=== PATIENT | female | born 1945 | race Caucasian/White ===

== ENCOUNTER 2017-08-21 16:51 | Emergency (ER) | payer OTHER, MEDICARE ==
[2017-08-21] MEDS ORDERED: Ondansetron 4 MG Tab.DIS PO ONE (18:07)
--- NOTE | 2017-08-21 18:13 | EDM.PDOC ---
ED HPI GENERAL MEDICAL PROBLEM - General Chief Complaint: Abdominal Pain Stated Complaint: UPPER ABDOMINAL PAIN/NAUSEA Time Seen by Provider: 08/21/17 18:00 Source of Information: Reports: Patient, Family, Old Records History Limitations: Reports: No Limitations - History of Present Illness INITIAL COMMENTS - FREE TEXT/NARRATIVE: 72 yo female from [facility] presents with upper abdominal discomfort associated with nausea and some distention. Last BM about midday today was normal. Had a SBO about 2 yrs ago that resolved with conservation measures. Has a kidney transplant with urostomy. No recent fevers. Sx's first noted about 11 am today. Lives in [place], [place]. Mentions only much later in ER course that she also has a pHx of gastric bypass. Onset: Today Onset Date: 08/21/17 Onset Time: 11:00 Duration: Hour(s):, Waxing/Waning Location: Reports: Abdomen Quality: Reports: Other (cramping, pressure) Severity: Moderate Improves with: Reports: None Worsens with: Reports: None Context: Reports: Other (Hx of SBO) Associated Symptoms: Reports: Nausea/Vomiting (no vomiting) Treatments [employer] [place] [employer]: Reports: Other (see below) (none) Upper Abdomen Pain Score (Numeric/FACES): 5 - Related Data Allergies Allergy/AdvReac Type Severity Reaction Status Date / Time ciprofloxacin [From Cipro] Allergy Rash Verified 08/21/17 17:30 ciprofloxacin HCl Allergy Rash Verified 08/21/17 17:30 [From Cipro] morphine Allergy Disorientat Verified 08/21/17 19:08 ion Sulfa (Sulfonamide Allergy Hallucinati Verified 08/21/17 17:30 Antibiotics) ons vancomycin Allergy Rash Verified 08/21/17 17:30 zolpidem Allergy Blurred Verified 08/21/17 17:30 Vision gabapentin AdvReac Lethargy Verified 08/21/17 17:30 Home Meds: Home Meds Aspirin 81 mg PO BEDTIME 09/04/15 [History] Calcium Carbonate/Vitamin D3 [Calcium 500 + Vit D 400] 1 tab PO BID 09/04/15 [ History] DULoxetine HCl [Duloxetine HCl] 90 mg PO BEDTIME 09/04/15 [History] Levothyroxine [Synthroid] 50 mcg PO DAILY 09/04/15 [History] Metoprolol Tartrate 25 mg PO BID 09/04/15 [History] Mirtazapine 7.5 mg PO BEDTIME 09/04/15 [History] Mycophenolate Sodium [Mycophenolic Acid] 540 mg PO BID 09/04/15 [History] Pramipexole [Mirapex] 0.25 mg PO BID 09/04/15 [History] Pravastatin Sodium 20 mg PO DAILY 09/04/15 [History] buPROPion [Wellbutrin SR] 100 mg PO DAILY 09/04/15 [History] cycloSPORINE, Modified [Neoral] 100 mg PO BID 09/04/15 [History] hydrALAZINE [Apresoline] 25 mg PO BID 09/04/15 [History] Cyanocobalamin (Vitamin B12) [Cyanocobalamin] 1,000 mcg .XX ASDIRECTED 08/21/17 [History] Thiamine HCl [Vitamin B-1] 100 mg PO DAILY 08/21/17 [History] diphenhydrAMINE [Benadryl] 50 mg PO BEDTIME PRN 08/21/17 [History] Past Medical History HEENT History: Reports: Hard of Hearing, Impaired 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 Cardiovascular History: Reports: Hypertension Genitourinary History: Reports: Urostomy, UTI, Recurrent SKIVER UPPERS OR LININGS History: Reports: , Spontaneous Musculoskeletal History: Reports: Arthritis Neurological History: Reports: Migraines Other Neuro History: RLS Psychiatric History: Reports: Anxiety, Depression Endocrine/Metabolic History: Reports: Hypothyroidism, Obesity/BMI 30+ Hematologic History: Reports: Anemia, B12 Deficiency, Blood Transfusion(s) Immunologic History: Reports: Immunosuppression, Solid Organ Transplant Oncologic (Cancer) History: Reports: Bladder Dermatologic History: Reports: Psoriasis Other Dermatologic History: atopic dermatitis - Infectious Disease History Infectious Disease History: Reports: Measles, Mumps - Past Surgical History GI Surgical History: Reports: Bariatric Procedure, Cholecystectomy, Colonoscopy , Hernia Repair/Other Female Surgical History: Reports: Hysterectomy, Ureteral Stent Musculoskeletal Surgical History: Reports: Knee Replacement Social & Family History - Tobacco Use Smoking Status *Q: Never Smoker Second Hand Smoke Exposure: No - Caffeine Use Caffeine Use: Reports: Coffee, Soda - Alcohol Use Days Per Week of Alcohol Use: 0 - Recreational Drug Use Recreational Drug Use: No ED ROS GENERAL - Review of Systems Review Of Systems: See Below Constitutional: Reports: No Symptoms HEENT: Reports: No Symptoms Respiratory: Reports: No Symptoms Cardiovascular: Reports: No Symptoms Endocrine: Reports: No Symptoms GI/Abdominal: Reports: Abdominal Pain, Nausea. Denies: Black Stool, Bloody Stool, Constipation, Diarrhea, Distension, Flatus, Hematemesis, Hematochezia, Melena, Vomiting : Reports: No Symptoms Musculoskeletal: Reports: No Symptoms Skin: Reports: No Symptoms Neurological: Reports: No Symptoms ED EXAM, GI/ABD - Physical Exam Exam: See Below Exam Limited By: No Limitations General Appearance: Alert, WD/WN, No Apparent Distress Eyes: Bilateral: Normal Appearance Ears: Normal External Exam, Normal Canal, Hearing Grossly Normal Nose: Normal Inspection, Normal Mucosa, No Blood Throat/Mouth: Normal Inspection, Normal Lips, Normal Oropharynx, Normal Voice, No Airway Compromise Head: Atraumatic, Normocephalic Neck: Normal Inspection Respiratory/Chest: No Respiratory Distress, Lungs Clear, Normal Breath Sounds, No Accessory Muscle Use Cardiovascular: Regular Rate, Rhythm GI/Abdominal Exam: Normal Bowel Sounds, Soft, Distended (mildly), Tender ( diffusely), Other (Obese). No: Guarding, Rigid, Rebound Back Exam: Normal Inspection Extremities: Normal Inspection, Normal Range of Motion, Non-Tender, No Pedal Edema Neurological: Alert, Oriented, CN II-XII Intact, Normal Cognition, No Motor/ Sensory Deficits Psychiatric: Normal Affect, Normal Mood Skin Exam: Warm, Dry, Intact, Normal Color, No Rash Course - Vital Signs Last Recorded V/S: Last Vital Signs Temp 36.4 C 08/21/17 17:48 Pulse 65 08/21/17 17:48 Resp 16 08/21/17 17:48 BP 145/70 H 08/21/17 17:48 Pulse Ox 100 08/21/17 17:48 - Orders/Labs/Meds Orders: Active Orders 24 hr Category Date Time Status Abdomen Pelvis w Cont [CT] Stat Exams 08/21/17 18:15 Stop Req Abdomen Pelvis wo Cont [CT] Stat Exams 08/21/17 18:43 Taken CULTURE URINE [RM] Stat Lab 08/21/17 18:48 Received UA W/MICROSCOPIC [URIN] Stat Lab 08/21/17 18:26 Ordered Lactated Ringers [Ringers, Lactated] 1,000 ml Med 08/21/17 18:15 Active IV ASDIRECTED Medication Orders Lactated Ringer's (Ringers, Lactated) 1,000 mls @ 150 mls/hr IV ASDIRECTED ELVER Last Admin: 08/21/17 18:22 Dose: 150 mls/hr Labs: Laboratory Tests 08/21/17 08/21/17 08/21/17 Range/Units 18:07 18:07 18:07 WBC 8.3 (4.5-11.0) K/uL RBC 4.06 (3.30-5.50) M/uL Hgb 11.6 L (12.0-15.0) g/dL Hct 36.8 (36.0-48.0) % MCV 91 (80-98) fL MCH 29 (27-31) pg MCHC 32 (32-36) % Plt Count 317 (150-400) K/uL Sodium 141 (140-148) mmol/L Potassium 4.1 (3.6-5.2) mmol/L Chloride 107 (100-108) mmol/L Carbon Dioxide 22 (21-32) mmol/L Anion Gap 12.3 (5.0-14.0) mmol/L BUN 37 H (7-18) mg/dL Creatinine 2.1 H (0.6-1.0) mg/dL Est Cr Clr Drug Dosing 23.89 mL/min Estimated GFR (MDRD) 23 L (>60) Glucose 126 H (74-106) mg/dL Calcium 9.8 (8.5-10.1) mg/dL Lipase 113 (73-393) U/L Urine Color Urine Appearance Urine pH (4.5-8.0) Ur Specific [place] (1.008-1.030) Urine Protein (NEGATIVE) mg/dL Urine Glucose (UA) (NEGATIVE) mg/dL Urine Ketones (NEGATIVE) mg/dL Urine Occult Blood (NEGATIVE) Urine Nitrite (NEGATIVE) Urine Bilirubin (NEGATIVE) Urine Urobilinogen (NORMAL) mg/dL Ur Leukocyte Esterase (NEGATIVE) Urine RBC (0-5) Urine WBC (0-5) Ur Epithelial Cells Amorphous Sediment Urine Bacteria Urine Mucus 08/21/17 Range/Units 18:26 WBC (4.5-11.0) K/uL RBC (3.30-5.50) M/uL Hgb (12.0-15.0) g/dL Hct (36.0-48.0) % MCV (80-98) fL MCH (27-31) pg MCHC (32-36) % Plt Count (150-400) K/uL Sodium (140-148) mmol/L Potassium (3.6-5.2) mmol/L Chloride (100-108) mmol/L Carbon Dioxide (21-32) mmol/L Anion Gap (5.0-14.0) mmol/L BUN (7-18) mg/dL Creatinine (0.6-1.0) mg/dL Est Cr Clr Drug Dosing mL/min Estimated GFR (MDRD) (>60) Glucose (74-106) mg/dL Calcium (8.5-10.1) mg/dL Lipase (73-393) U/L Urine Color Yellow Urine Appearance Slightly cloudy Urine pH 5.0 (4.5-8.0) Ur Specific [place] 1.015 (1.008-1.030) Urine Protein Negative (NEGATIVE) mg/dL Urine Glucose (UA) Normal (NEGATIVE) mg/dL Urine Ketones Negative (NEGATIVE) mg/dL Urine Occult Blood Negative (NEGATIVE) Urine Nitrite Negative (NEGATIVE) Urine Bilirubin Negative (NEGATIVE) Urine Urobilinogen Normal (NORMAL) mg/dL Ur Leukocyte Esterase Large (NEGATIVE) Urine RBC 0-5 (0-5) Urine WBC 20-30 H (0-5) Ur Epithelial Cells Many Amorphous Sediment Not seen Urine Bacteria Many Urine Mucus Not seen Meds: Medications Generic Name Dose Route Start Last Admin Trade Name Freq PRN Reason Stop Dose Admin Lactated Ringer's 1,000 mls @ 150 mls/hr 08/21/17 18:15 08/21/17 18:22 Ringers, Lactated IV 150 mls/hr ASDIRECTED ELVER Administration Discontinued Medications Generic Name Dose Route Start Last Admin Trade Name Freq PRN Reason Stop Dose Admin Hydromorphone HCl 0.5 mg 08/21/17 19:10 08/21/17 19:13 Dilaudid IVPUSH 08/21/17 19:11 0.5 mg ONETIME ONE Administration Morphine Sulfate 2 mg 08/21/17 19:02 08/21/17 19:19 Morphine IVPUSH 08/21/17 19:03 Not Given ONETIME ONE Ondansetron HCl 4 mg 08/21/17 18:07 08/21/17 18:15 Zofran Odt PO 08/21/17 18:08 4 mg ONETIME ONE Administration - Radiology Interpretation Free Text/Narrative:: CT abd/pelvis without contrast-early, complete SBO CT Results Date: 08/21/17 CT Results Time: 19:15 Departure - Departure Time of Disposition: 20:15 Disposition: DC/Tfer to Acute Hospital 02 Condition: Fair Clinical Impression: SBO (small bowel obstruction) - Discharge Information Referrals: PCP,None [Primary Care Provider] - Forms: ED Department Discharge - My Orders Last 24 Hours: My Active Orders 08/21/17 18:15 Abdomen Pelvis w Cont [CT] Stat Lactated Ringers [Ringers, Lactated] 1,000 ml IV ASDIRECTED 08/21/17 18:26 UA W/MICROSCOPIC [URIN] Stat 08/21/17 18:43 Abdomen Pelvis wo Cont [CT] Stat 08/21/17 18:48 CULTURE URINE [RM] Stat - Assessment/Plan Last 24 Hours: My Active Orders 08/21/17 18:15 Abdomen Pelvis w Cont [CT] Stat Lactated Ringers [Ringers, Lactated] 1,000 ml IV ASDIRECTED 08/21/17 18:26 UA W/MICROSCOPIC [URIN] Stat 08/21/17 18:43 Abdomen Pelvis wo Cont [CT] Stat 08/21/17 18:48 CULTURE URINE [RM] Stat
[2017-08-21] MEDS ORDERED: Lactated Ringers 1,000 ML IV SCH (18:15)
[2017-08-21] MEDS ORDERED: Morphine 2 MG/ML Syringe IVPUSH ONE (19:02)
[2017-08-21] MEDS ORDERED: HYDROmorphone 0.5 MG/0.5 ML Syringe IVPUSH ONE ×2 (19:10→20:46)
[2017-08-21 20:28] VITALS: BP 149/58
== END 2017-08-21 21:11 ==
LOC: JP.ED 16:51
DX: K56.609 Unspecified intestinal obstruction, unspecified as to partial versus complete obstruction (principal); I10 Essential (primary) hypertension; E03.9 Hypothyroidism, unspecified; Z88.1 Allergy status to other antibiotic agents; Z88.5 Allergy status to narcotic agent; Z88.8 Allergy status to other drugs, medicaments and biological substances; Z88.2 Allergy status to sulfonamides; Z79.82 Long term (current) use of aspirin; Z79.899 Other long term (current) drug therapy
CPT/HCPCS: 36415; 74176; 80048; 81001; 83690; 85027; 87086; 87088; 87186; 96374; 96376; 99285; A9270; J1170; J7120